=== PATIENT | female | born 2005 | race Caucasian/White ===

== ENCOUNTER 2024-05-17 23:50 | Emergency (ER) | payer OTHER, SELFPAY ==
[2024-05-17 23:56] VITALS: BP 132/99; PULSE 100; TEMP 37.2; O2SAT 98; BMI 33.3
--- NOTE | 2024-05-18 00:19 | ED_ITS ---
HPI - Abdominal Pain General Chief Complaint: Abdominal Pain Stated Complaint: ABD PAIN Time Seen by Provider: 05/18/24 00:17 Source: patient Mode of arrival: walk-in History of Present Illness HPI narrative: presents complaining of abdominal of abdominal pain. Started yesterday evening and feels it has increased. No nausea or vomiting. But has had diarrhea. states she had fever at home. No urinary symptoms Related Data Allergies Allergy/AdvReac Type Severity Reaction Status Date / Time sulfamethoxazole Allergy Intermediate Swelling Verified 05/18/24 00:02 [From Bactrim] of Lip/Tongue/Throat trimethoprim [From Bactrim] Allergy Intermediate Swelling Verified 05/18/24 00:02 of Lip/Tongue/Throat oseltamivir [From Tamiflu] AdvReac Mild Vomiting Verified 05/18/24 00:02 Review of Systems ROS Status of ROS 10 or more systems reviewed and unremark able except as noted in history and below Exam Constitutional Vital Signs, click to edit/add: Last Vital Signs Temp 99.0 F 05/17/24 23:56 Pulse 100 H 05/17/24 23:56 Resp 18 05/17/24 23:56 BP 132/99 H 05/17/24 23:56 Pulse Ox 98 05/17/24 23:56 O2 Del Method Room Air 05/17/24 23:56 Common normals: no apparent distress, average body habitus, oriented x3, no limitations, healthy appearing, alert and well nourished [facility] Common normals: normocephalic and head/scalp atraumatic Eye Common normals: PERRL, EOMs intact bilaterally and conjunctivae normal Respiratory Common normals: normal respiratory effort, no retractions, no use of accessory muscles and clear to auscultation bilaterally Cardio Common normals: S1 normal heart sound and S2 normal heart sound Rate: tachycardic GI Other: bilat lower quad tenderness. mild-mod Extremity Common normals: normal to inspection and full ROM Neuro Common normals: oriented x3, CN's II-XII intact bilaterally, moves all extremities and no focal motor deficits Psych Appearance: grossly normal Course Vital Signs Vital signs: Vital Signs Temperature 99.0 F 05/17/24 23:56 Pulse Rate 100 H 05/17/24 23:56 Respiratory Rate 18 05/17/24 23:56 Blood Pressure 132/99 H 05/17/24 23:56 Pulse Oximetry 98 05/17/24 23:56 Oxygen Delivery Method Room Air 05/17/24 23:56 Temperature 99.0 F 05/17/24 23:56 Pulse Rate 100 H 05/17/24 23:56 Respiratory Rate 18 05/17/24 23:56 Blood Pressure 132/99 H 05/17/24 23:56 Pulse Oximetry 98 05/17/24 23:56 Oxygen Delivery Method Room Air 05/17/24 23:56 MDM - Abdominal Pain MDM Narrative Medical decision making narrative: patient presents with lower abdominal pain. Has a sibling who has Crohn's disease. CT with findings of nonspecific colitis DD including IBD. Pain tolerabel at 02/14. Given dose of Toradol and discharged home to follow up with her doctor. Advised to use tylenol for pain. Discharged with a prescription for prednisone Lab Data Labs: Lab Results 05/18/24 05/18/24 Range/Units 00:06 00:10 WBC 10.4 (4.0-11.0) 10^3/uL RBC 5.02 (4.20-5.40) 10^6/uL Hgb 14.8 (12.0-16.0) g/dL Hct 45.6 (36.0-48.0) % MCV 90.8 (81.0-99.0) fL MCH 29.5 (26.7-34.0) pg MCHC 32.5 (29.9-35.2) g/dL RDW 12.3 (11.0-15.0) % Plt Count 325 (150-450) 10^3/uL MPV 9.9 (9.5-13.5) fL Neut % (Auto) 76.5 H (43.0-75.0) % Lymph % (Auto) 12.2 L (20.5-60.0) % [place] % (Auto) 9.5 (1.7-12.0) % Eos % (Auto) 1.0 (0.9-7.0) % Baso % (Auto) 0.5 (0.2-2.0) % Neut # (Auto) 8.0 H (1.4-6.5) 10^3/uL Lymph # (Auto) 1.3 (1.2-3.8) 10^3/uL [place] # (Auto) 1.0 H (0.3-0.8) 10^3/uL Eos # (Auto) 0.1 (0.0-0.7) 10^3/uL Baso # (Auto) 0.1 (0.0-0.1) 10^3/uL Abs Immat Gran (auto) 0.03 (0.00-0.03) 10^3/uL Imm/Tot Granulo (auto) 0.3 (0.0-0.5) % Sodium 135 L (136-145) mmol/L Potassium 3.8 (3.5-5.1) mmol/L Chloride 101 (98-107) mmol/L Carbon Dioxide 27.6 (21.0-32.0) mmol/L Anion Gap 10.2 BUN 7.0 (6.4-19.3) mg/dL Creatinine 0.66 (0.55-1.02) mg/dL Est GFR ( Amer) >60 (>=60) Est GFR (Non-Af Amer) >60 (>=60) BUN/Creatinine Ratio 10.6 Glucose 109 H (74-106) mg/dL Lactate 1.0 (0.4-2.0) mmol/L Calcium 8.8 (8.5-10.1) mg/dL Total Bilirubin 0.5 (0.2-1.0) mg/dL AST 21 (15-37) U/L ALT 30 (14-59) U/L Alkaline Phosphatase 105 (46-116) U/L Total Protein 8.5 H (6.4-8.2) g/dL Albumin 3.9 (3.4-5.0) g/dL Globulin 4.6 g/dL Albumin/Globulin Ratio 0.8 Lipase 32.0 (16.0-77.0) U/L Urine Color Yellow (YELLOW) Urine Clarity Clear (CLEAR) Urine pH 6.5 (5.0-9.0) Ur Specific [place] >=1.030 A (1.005-1.025) Urine Protein Trace (NEG/TRACE) mg/dL Urine Glucose (UA) Negative (NEGATIVE) mg/dL Urine Ketones Negative (NEGATIVE) mg/dL Urine Occult Blood Trace-i (NEGATIVE) Urine Nitrite Negative (NEGATIVE) Urine Bilirubin Negative (NEGATIVE) Urine Urobilinogen 0.2 (0.2-1.0) EU/dL Ur Leukocyte Esterase Negative (NEGATIVE) Urine RBC 0-2 (0-2) #/HPF Urine WBC 0-2 A (NONE SEEN) #/HPF Ur Squamous Epith Cells Moderate A (NONE/RARE) #/LPF Urine Crystals None seen (None Seen) #/HPF Urine Bacteria None seen (NONE SEEN) #/HPF Urine Casts None seen (NONE SEEN) #/LPF Urine Mucus Large A (NONE SEEN) Ur Culture Indicated? No Imaging Data Abdominal x-ray: Radiologist's impression: ITS Impressions Abdomen/Pelvis CT 05/18/24 00:22 IMPRESSION: 1. Findings of mild wall thickening and fatty infiltration with adjacent stranding involving the cecum and ascending large bowel with some mildly prominent borderline in size increased number of lymph nodes in the adjacent mesentery as discussed. Differential includes inflammatory bowel disease versus other causes of nonspecific colitis which may be acute on chronic. Correlate with history. Correlate with labs. Lymph nodes likely reactive or could be from mesenteric adenitis. 2. Not mentioned above, there is some fluid in the adjacent terminal ileum with some questionable mild wall enhancement at junction with cecum but no definitive terminal ileitis. 3. Normal appendix. No bowel obstruction. Electronically authenticated by: AZ OCHOA Date: 05/18/2024 01:26 CT scan - abdomen: Radiologist's impression: ITS Impressions Abdomen/Pelvis CT 05/18/24 00:22 IMPRESSION: 1. Findings of mild wall thickening and fatty infiltration with adjacent stranding involving the cecum and ascending large bowel with some mildly prominent borderline in size increased number of lymph nodes in the adjacent mesentery as discussed. Differential includes inflammatory bowel disease versus other causes of nonspecific colitis which may be acute on chronic. Correlate with history. Correlate with labs. Lymph nodes likely reactive or could be from mesenteric adenitis. 2. Not mentioned above, there is some fluid in the adjacent terminal ileum with some questionable mild wall enhancement at junction with cecum but no definitive terminal ileitis. 3. Normal appendix. No bowel obstruction. Electronically authenticated by: AZ OCHOA Date: 05/18/2024 01:26 Discharge Plan Discharge Stand Alone Forms: Portal Instructions Chief Complaint: Abdominal Pain Clinical Impression: Colitis Patient Disposition: Home, Self-Care Print Language: Japanese Instructions: Colitis (ED) Additional Instructions: follow up with your doctor early next week Referrals: BRI HART [Primary Care Provider] - 1 week
--- NOTE | 2024-05-18 00:22 | CT_ITS ---
The [address] [address] Patient Name: TAMERA APARICIO MRN: [id number] date: 2005 Sex: F Assigned Patient Location: ER Current Patient Location: ED.MAIN Accession/Order Number: [id number] Exam Date: 05/18/2024 00:43 Report Date: 05/18/2024 01:26 At the request of: NICOLE VICTORIA Procedure: CT abdomen pelvis w con CT OF THE ABDOMEN AND PELVIS WITH CONTRAST: 05/18/2024 12:43 AM EDT CLINICAL HISTORY: 18-year-old with lower abdominal pain. Nausea and vomiting since yesterday morning. COMPARISONS: None. TECHNIQUE: Thin section axial CT images were obtained from the lung bases to the pubis symphysis. This CT exam was performed using one or more of the following dose reduction techniques: Automated exposure control, adjustment of the mA and/or kV according to patient size, or use of iterative reconstruction technique. Thin section coronal and sagittal images were reconstructed from the axial data set. All images were reviewed and interpreted. CONTRAST: Intravenous contrast was administered. Type and amount is documented at the local institution. FINDINGS: LUNG BASES: No consolidation or pleural fluid. LIVER: Normal. GALLBLADDER: Normal. BILIARY TREE: No ductal dilatation. PANCREAS: Normal. SPLEEN: Normal. ADRENALS: Normal. KIDNEYS: Normal, without urolithiasis or hydronephrosis. URINARY BLADDER: Grossly unremarkable. PELVIC STRUCTURES: Unremarkable. Normal appearing reproductive organs. SMALL BOWEL: No evidence of obstruction, gross mass, or inflammatory change. LARGE BOWEL: There is some mild mild stranding around the cecum and ascending large bowel with some uniform fatty infiltration throughout the wall of the cecum and ascending large bowel. There are some mild mildly borderline enlarged and increased number of lymph nodes in the adjacent mesentery in the right lower quadrant near cecum. Findings could reflect acute on chronic colitis in this region. Does patient have history of inflammatory bowel disease either Crohn's or ulcerative colitis? This may explain with some subtle acute or chronic recurrent inflammation in this area. Correlate with labs and history and presentation. Lymph nodes may be reactive or could be due to mesenteric adenitis as well. The distal large bowel in the transverse colon and descending portions are unremarkable. There is no significant diverticulosis. There is no evidence of diverticulitis. APPENDIX: No active disease with normal appendix. LYMPH NODES: As stated above there are an increased number of small mildly prominent lymph nodes within the mesentery near the inner margin of the cecum. These measure 7 mm maximum. No signs of lymphadenopathy elsewhere in the abdomen or pelvis or groin regions. PERITONEUM: No intraperitoneal free air. No free intraperitoneal fluid. MESENTERY: Unremarkable. RETROPERITONEUM: The retroperitoneum is unremarkable. AORTA: Normal in caliber. BODY WALL: No body wall mass. OSSEOUS STRUCTURES: No for age. CT/CT abdomen pelvis w con IMPRESSION: 1. Findings of mild wall thickening and fatty infiltration with adjacent stranding involving the cecum and ascending large bowel with some mildly prominent borderline in size increased number of lymph nodes in the adjacent mesentery as discussed. Differential includes inflammatory bowel disease versus other causes of nonspecific colitis which may be acute on chronic. Correlate with history. Correlate with labs. Lymph nodes likely reactive or could be from mesenteric adenitis. 2. Not mentioned above, there is some fluid in the adjacent terminal ileum with some questionable mild wall enhancement at junction with cecum but no definitive terminal ileitis. 3. Normal appendix. No bowel obstruction. Electronically authenticated by: AZ OCHOA Date: 05/18/2024 01:26
[2024-05-18 00:29] LABS: Basophils Absolute Auto 0.1 10^3/uL (0.0-0.1); Basophils Percent Auto 0.5 % (0.2-2.0); Eosinophils Absolute Auto 0.1 10^3/uL (0.0-0.7); Hematocrit 45.6 % (36.0-48.0); Hemoglobin 14.8 g/dL (12.0-16.0); Immature Granulocytes Abs Auto 0.03 10^3/uL (0.00-0.03); Immature Granulocytes Pct Auto 0.3 % (0.0-0.5); Lymphocytes Absolute Auto 1.3 10^3/uL (1.2-3.8); Lymphocytes Percent Auto 12.2 % (20.5-60.0); Mean Corpuscular HGB Conc 32.5 g/dL (29.9-35.2); Mean Corpuscular Hemoglobin 29.5 pg (26.7-34.0); Mean Corpuscular Volume 90.8 fL (81.0-99.0); Mean Platelet Volume 9.9 fL (9.5-13.5); Monocytes Percent Auto 9.5 % (1.7-12.0); Neutrophils Percent Auto 76.5 % (43.0-75.0); Platelet Count 325 10^3/uL (150-450); Red Blood Count 5.02 10^6/uL (4.20-5.40); Red Cell Distribution Width 12.3 % (11.0-15.0); White Blood Count 10.4 10^3/uL (4.0-11.0)
[2024-05-18 00:41] LABS: Bilirubin Urine NEGATIVE (NEGATIVE); Blood Urine TRACE-I (NEGATIVE); Clarity Urine CLEAR (CLEAR); Color Urine YELLOW (YELLOW); Glucose Urine UA NEGATIVE (NEGATIVE); Ketones Urine NEGATIVE (NEGATIVE); Leukocyte Esterase Urine NEGATIVE (NEGATIVE); Nitrite Urine NEGATIVE (NEGATIVE); Protein Urine TRACE mg/dL (NEG/TRACE); Specific Gravity Urine >=1.030 (1.005-1.025); Urobilinogen Urine 0.2 EU/dL (0.2-1.0); pH Urine 6.5 (5.0-9.0)
[2024-05-18 00:51] LABS: Alanine Aminotransferase 30 U/L (14-59); Albumin Globulin Ratio 0.8; Albumin Level 3.9 g/dL (3.4-5.0); Alkaline Phosphatase 105 U/L (46-116); Anion Gap 10.2; Aspartate Amino Transferase 21 U/L (15-37); BUN Creatinine Ratio 10.6; Bilirubin Total 0.5 mg/dL (0.2-1.0); Calcium 8.8 mg/dL (8.5-10.1); Carbon Dioxide 27.6 mmol/L (21.0-32.0); Chloride 101 mmol/L (98-107); Estimated GFR (African America >60 (>=60); Estimated GFR (Non-African Ame >60 (>=60); Globulin 4.6 g/dL; Glucose 109 mg/dL (74-106); Potassium 3.8 mmol/L (3.5-5.1); Sodium 135 mmol/L (136-145); Total Protein 8.5 g/dL (6.4-8.2)
[2024-05-18 00:51] LABS: Urine Microscopic Indicated YES
[2024-05-18 00:53] LABS: Bacteria Urine NONE SEEN #/HPF (NONE SEEN); Crystals Seen? None Seen #/HPF (None Seen); Mucus Urine LARGE (NONE SEEN); RBC Urine 0-2 #/HPF (0-2); Squamous Epithelial Cell Urine MODERATE #/LPF (NONE/RARE); WBC Urine 0-2 #/HPF (NONE SEEN)
[2024-05-18 00:54] LABS: Cast Seen? NONE SEEN #/LPF (NONE SEEN); Urine Culture Indicated NO
[2024-05-18] MEDS: 0.9 % SODIUM CHLORIDE 1,000 ML 999 ML IV (00:54)
[2024-05-18] MEDS: ONDANSETRON PF 4 MG/2 ML VIAL IV (00:54)
[2024-05-18] MEDS: KETOROLAC TROMETHAMINE 30 MG/ML VIAL 15 MG IVP (02:11)
[2024-05-18] MEDS: METHYLPREDNISOLONE SOD SUCC PF 125 MG/2 ML VIAL IVP (02:27)
[2024-05-18] MEDS: ONDANSETRON 4 MG RAPDIS TABLET SL (02:52)
== END 2024-05-18 03:09 | disposition home or self-care (01) ==
PROVIDERS: Emergency Provider Internal Medicine; PCP Family Medicine
DX: K52.9 Noninfective gastroenteritis and colitis, unspecified (principal)
CPT/HCPCS: 36415; 74177; 80053; 81001; 83605; 83690; 85025; 96361; 96374; 96375; 99284; J1885; J2405; J2919; Q0162; Q9967

== ENCOUNTER 2024-05-18 21:59 | Emergency (ER) | payer OTHER, SELFPAY ==
[2024-05-18 22:17] VITALS: BP 139/81; PULSE 81; TEMP 37.1; O2SAT 99; BMI 33.3
--- NOTE | 2024-05-18 23:03 | ED_ITS ---
HPI - Abdominal Pain General Chief Complaint: Abdominal Pain Stated Complaint: ABDOMINAL PAIN Time Seen by Provider: 05/18/24 22:47 Source: patient Mode of arrival: walk-in Limitations: no limitations History of Present Illness HPI narrative: patient seen last PM and found to have colitis. there is a family history of Crohn's disease. Patient prescribed prednisone but did not [employer] the prescription until tonight and took dose about an hour ago. No vomiting. No fever . pain has improved some Related Data Allergies Allergy/AdvReac Type Severity Reaction Status Date / Time sulfamethoxazole Allergy Intermediate Swelling Verified 05/18/24 22:22 [From Bactrim] of Lip/Tongue/Throat trimethoprim [From Bactrim] Allergy Intermediate Swelling Verified 05/18/24 22:22 of Lip/Tongue/Throat oseltamivir [From Tamiflu] AdvReac Mild Vomiting Verified 05/18/24 22:22 Review of Systems ROS Status of ROS 10 or more systems reviewed and unremark able except as noted in history and below Exam Constitutional Vital Signs, click to edit/add: Last Vital Signs Temp 98.8 F 05/18/24 22:17 Pulse 81 05/18/24 22:17 Resp 18 05/18/24 22:17 BP 139/81 05/18/24 22:17 Pulse Ox 99 05/18/24 22:17 O2 Del Method Room Air 05/18/24 22:17 Common normals: no apparent distress, average body habitus, oriented x3, no limitations, healthy appearing and alert [facility] Common normals: normocephalic and head/scalp atraumatic Respiratory Common normals: normal respiratory effort, no retractions and no use of accessory muscles Cardio Common normals: regular rate, regular rhythm, S1 normal heart sound and S2 normal heart sound GI Other: gen. mild lower quad tenderness Extremity Common normals: normal to inspection and full ROM Neuro Common normals: oriented x3, CN's II-XII intact bilaterally, moves all extremities and no focal motor deficits Psych Appearance: grossly normal Course Vital Signs Vital signs: Vital Signs Temperature 98.8 F 05/18/24 22:17 Pulse Rate 81 05/18/24 22:17 Respiratory Rate 18 05/18/24 22:17 Blood Pressure 139/81 05/18/24 22:17 Pulse Oximetry 99 05/18/24 22:17 Oxygen Delivery Method Room Air 05/18/24 22:17 Temperature 98.8 F 05/18/24 22:17 Pulse Rate 81 05/18/24 22:17 Respiratory Rate 18 05/18/24 22:17 Blood Pressure 139/81 05/18/24 22:17 Pulse Oximetry 99 05/18/24 22:17 Oxygen Delivery Method Room Air 05/18/24 22:17 MDM - Abdominal Pain MDM Narrative Medical decision making narrative: patient seen last PM and diagnosed with colitis. Prescribed prednisone but did not take. Mey developed increasing pain and then filled prescription for prednisone and took it about an hour before coming in. Pain has decreased some. Given injection of soumedrol and dose of Bentyl and observed in the department. She s now feeling better and feels she is ready to go home. Discharged with a prescription for Bentyl and advised to follow up with her doctor next week Discharge Plan Discharge Stand Alone Forms: Portal Instructions Chief Complaint: Abdominal Pain Clinical Impression: Colitis Patient Disposition: Home, Self-Care Print Language: Welsh Instructions: Colitis (ED) Referrals: BRI HART [Primary Care Provider] - 1 week
[2024-05-18] MEDS: METHYLPREDNISOLONE SOD SUCC PF 125 MG/2 ML VIAL IM (23:17)
[2024-05-18] MEDS: DICYCLOMINE HCL 10 MG CAPSULE 20 MG PO (23:17)
[2024-05-18 23:44] VITALS: BP 139/81; PULSE 81
== END 2024-05-18 23:46 | disposition home or self-care (01) ==
PROVIDERS: Emergency Provider Internal Medicine; PCP Family Medicine
DX: K52.9 Noninfective gastroenteritis and colitis, unspecified (principal)
CPT/HCPCS: 96372; 99284; J2919